=== PATIENT | male | born 1975 | race Caucasian/White ===

== ENCOUNTER 2017-08-24 23:24 | Emergency (ER) | payer OTHER ==
[2017-08-24 23:32] VITALS: BP 117/90; PULSE 85; BMI 29.0
--- NOTE | 2017-08-25 00:09 | PDOC ---
*Physical Exam - Vital Signs Last Vital Signs Temp Pulse Resp BP Pulse Ox 85 18 117/90 99 08/24/17 23:26 08/24/17 23:26 08/24/17 23:26 08/24/17 23:26 - Physical Exam Comments: 08/25/17 00:08 The patient was examined by [DIETARY ASSISTANT Indu] under my direct supervision. I personally evaluated the patient. I concur with the above findings and the plan of care.
--- NOTE | 2017-08-25 00:28 | PDOC ---
History of Present Illness - General Chief Complaint: Injury Stated Complaint: FALL,INJURY Time Seen by Provider: 08/24/17 23:45 History Source: Patient Exam Limitations: No Limitations - History of Present Illness Initial Comments: 08/25/17 02:19 42-year-old male with no medical history presents to the emergency department complaining of right frontal headache, right shoulder discomfort after a slip and fall. Patient states he had approximately 8 beers earlier this evening at a restaurant. As he was walking down 4 steps, he slipped and fell causing his right frontal forehead to hit the pavement. Fall was witnessed by the employees at the restaurant who denied loss of consciousness. Patient states when he fell forward he also struck the anterior right shoulder on the step. The sure the pain is described as 4/10 dull nonradiating intermittent discomfort. The pain is exacerbated on movement/touch and alleviated at rest. Patient denies lightheadedness, dizziness, visual disturbance, diplopia, facial pain, sore throat, neck pain, back pains, shortness of breath, abdominal pains, flank pains , urinary symptoms, extremity numbness or tingling sensation. Occurred: reports: just prior to arrival Pain Location: reports: head Past History - Past Medical History Allergies/Adverse Reactions: Allergies Allergy/AdvReac Type Severity Reaction Status Date / Time No Known Allergies Allergy Verified 08/24/17 23:28 Home Medications: Ambulatory Orders NK [No Known Home Medication] 08/25/17 COPD: No Hypercholesterolemia: Yes - Suicide/Smoking/Psychosocial Hx Smoking History: Never smoked Review of Systems - Review of Systems Able to Perform ROS?: Yes Comments:: 08/25/17 02:21 CONSTITUTIONAL: Absent: fever, chills, diaphoresis, generalized weakness, malaise, loss of appetite HEENT: Absent: rhinorrhea, nasal congestion, throat pain, throat swelling, difficulty swallowing, mouth swelling, ear pain, eye pain, visual Changes CARDIOVASCULAR: Absent: chest pain, loss of consciousness, palpitations, irregular heart rate, peripheral edema RESPIRATORY: Absent: cough, shortness of breath, dyspnea with exertion, orthopnea, wheezing, stridor, hemoptysis GASTROINTESTINAL: Absent: abdominal pain, abdominal distension, nausea, vomiting, diarrhea, constipation, melena, hematochezia GENITOURINARY: Absent: dysuria, frequency, urgency, hesitancy, hematuria, flank pain, genital pain MUSCULOSKELETAL: right shoulder pain Absent: myalgia, arthralgia, joint swelling SKIN: Absent: rash, itching, pallor HEMATOLOGIC/IMMUNOLOGIC: Absent: easy bleeding, easy bruising, lymphadenopathy, frequent infections ENDOCRINE: Absent: unexplained weight gain, unexplained weight loss, heat intolerance, cold intolerance NEUROLOGIC: +right frontal burger Absent: focal weakness or paresthesias, dizziness, unsteady gait, seizure, mental status changes, bladder or bowel incontinence Is the patient limited Indonesian proficient: No *Physical Exam - Vital Signs Last Vital Signs Temp Pulse Resp BP Pulse Ox 85 18 117/90 99 08/24/17 23:26 08/24/17 23:26 08/24/17 23:26 08/24/17 23:26 - Physical Exam Comments: 08/25/17 02:21 GENERAL: Well developed, well nourished. Awake and alert. No acute distress. HEENT: Normocephalic, atraumatic. PERRLA, EOMI. No conjunctival pallor. Sclera are non- icteric. Moist mucous membranes. Oropharynx is clear. NECK: Supple. Full ROM. No JVD. Carotid pulses 2+ and symmetric, without bruits. No thyromegaly. No lymphadenopathy. CARDIOVASCULAR: Regular rate and rhythm. No murmurs, rubs, or gallops. Distal pulses are 2+ and symmetric. PULMONARY: No evidence of respiratory distress. Lungs clear to auscultation bilaterally. No wheezing, rales or rhonchi. ABDOMINAL: Soft. Non-tender. Non-distended. No rebound or guarding. No organomegaly. Normoactive bowel sounds. MUSCULOSKELETAL Excluding right shoulder;Normal range of motion at all joints. No bony deformities or tenderness. No CVA tenderness. EXTREMITIES: No cyanosis. No clubbing. No edema. No calf tenderness. SKIN: Warm and dry. Normal capillary refill. No rashes. No jaundice. NEUROLOGICAL: +Right frontal scalp swelling Alert, awake, appropriate. Cranial nerves 2-12 intact. No deficits to light touch and temperature in face, upper extremities and lower extremities. No motor deficits in the in face, upper extremities and lower extremities. Normoreflexic in the upper and lower extremities. Normal speech. Toes are down- going bilaterally. Gait is normal without ataxia. PSYCHIATRIC: Cooperative. Good eye contact. Appropriate mood and affect. Right shoulder F.R.O.M./slight pain slight swelling neg obv deformities Right elbow F.R.O.M. Neg swelling neg pain on palp ED Treatment Course - LABORATORY CBC & Chemistry Diagram: 08/25/17 02:00 08/25/17 02:00 - RADIOLOGY Radiograph Interpretation: 08/25/17 02:15 CAT scan cervical spine without contrast: No acute fracture or malalignment. Minimal spondylosis. Straightening of cervical lordosis, possibly due to positioning or muscle spasm. CAT scan head without contrast: No acute brain parenchymal abnormality. No hemorrhage, mass or acute infarct. Swelling right frontal scalp. No skull fracture. Clear visualized parents nasal sinuses. Visualized mastoid ear cells clear. Progress Note - Progress Note Progress Note: CAT scan head without contrast: No acute brain parenchymal abnormality. No hemorrhage, mass or acute territorial infarct. Swelling right frontal scalp. No skull fracture. Clear visualized paranasal sinuses. Visualized mastoid ear cells clear. Allyn/daughter [phone] Pt does not have a ride home. He will sleep in the ER until his daughter gets here about 6 am *DC/Admit/Observation/Transfer Diagnosis at time of Disposition: Closed head injury Qualifiers: Encounter type: initial encounter Qualified Code(s): S09.90XA - Unspecified injury of head, initial encounter Contusion of scalp Qualifiers: Encounter type: initial encounter Qualified Code(s): S00.03XA - Contusion of scalp, initial encounter Contusion of shoulder, right Qualifiers: Encounter type: initial encounter Qualified Code(s): S40.011A - Contusion of right shoulder, initial encounter - Discharge Dispostion Condition at time of disposition: Stable Admit: No - Referrals Referrals: Bob Alvarez MD [Staff Physician] - - Patient Instructions Printed Discharge Instructions: DI for Closed Head Injury Additional Instructions: Rest Tylenol as needed for pain Bacitracin to the abrasion to your scalp Follow up with your physician or the neurosurgeon listed on your discharge Ice your swollen scalp for the next 48 hours/ 20 mins on alternating with 20 mins off. Return to the ER for severe pain, lightheadedness Ice; 20 mins on alternating with 20 mins off for 48 hours while awake./right shoulder Rest Elevate Follow up with your orthopedic surgeon or the one listed on the discharge form. Return to the ER for severe/persistent/worsening symptoms, extremity numbness/ tingling sensation. - Post Discharge Activity
[2017-08-25] MEDS ORDERED: FOLIC ACID INJECTION - 1 MG, THIAMINE HCL 100 MG, MULTIVIT INJECTION ADULT 10 ML in SOD... IVPB ONE (02:40)
[2017-08-25 02:49] LABS: BASOPHIL 0.2 % (0-2.0); EOSINOPHIL 1.1 % (0-4.5); MCHC 34.6 g/dl (32.0-35.9); MEAN CELL VOLUME 92.7 fl (80-96); MEAN PLT VOLUME 10.3 fl (7.5-11.1); NEUTROPHILS 61.2 % (42.8-82.8); PLATELET COUNT 232 K/MM3 (134-434); RDW 13.3 % (11.9-15.9); WHITE BLOOD COUNT 8.3 K/mm3 (4.0-10.0)
[2017-08-25] MEDS ORDERED: TETANUS AND DIPHTHERIA TOXOID 0.5 ML DISP.SYRIN IM ONE (02:53)
[2017-08-25 03:22] LABS: ALBUMIN 4.6 g/dl (3.4-5.0); ALK PHOS 80 U/L (45-117); ANION GAP 12 (8-16); BILIRUBIN,TOTAL 0.4 mg/dL (0.2-1.0); CALCIUM 8.6 mg/dL (8.5-10.1); CO2 26 mmol/L (21-32); CREATININE 0.8 mg/dL (0.7-1.3); GLUCOSE,RANDOM 103 mg/dL (74-106); SGOT/AST 24 U/L (15-37); SGPT/ALT 51 U/L (12-78); TOT PROT 8.5 g/dl (6.4-8.2)
[2017-08-25] MEDS ORDERED: ACETAMINOPHEN INJECTION 100 ML IVPB ONE (05:40)
[2017-08-25] MEDS ORDERED: BACITRACIN 0.9 GM PACKET ONE (06:18)
[2017-08-25] MEDS ORDERED: ACETAMINOPHEN 1000 MG/100 ML VIAL (NON FORMULARY) IVPB ONE (06:18)
== END 2017-08-25 06:21 | disposition home or self-care (01) ==
LOC: JER 23:24
PROC: 3E0234Z Introduction of Serum, Toxoid and Vaccine into Muscle, Percutaneous Approach (ICD-10-PCS; principal; 2017-08-24)
PROC: 3E033GC Introduction of Other Therapeutic Substance into Peripheral Vein, Percutaneous Approach (ICD-10-PCS; 2017-08-24)
PROC: 3E033NZ Introduction of Analgesics, Hypnotics, Sedatives into Peripheral Vein, Percutaneous Approach (ICD-10-PCS; 2017-08-24)
DX: S00.83XA Contusion of other part of head, initial encounter (principal); S40.011A Contusion of right shoulder, initial encounter; W10.8XXA Fall (on) (from) other stairs and steps, initial encounter; Y93.89 Activity, other specified; Y92.511 Restaurant or cafe as the place of occurrence of the external cause; Y99.8 Other external cause status; F10.10 Alcohol abuse, uncomplicated; Y90.8 Blood alcohol level of 240 mg/100 ml or more
CPT/HCPCS: 36415; 70450-TC; 72125-TC; 73030-TC-RT; 80053; 80307; 85025; 90471; 90715; 96365; 96366; 96375; 99283-25

== ENCOUNTER 2017-08-30 10:28 | Emergency (ER) | payer OTHER ==
[2017-08-30 10:37] VITALS: BP 131/88; PULSE 81; TEMP 98.1; BMI 29.1
--- NOTE | 2017-08-30 11:55 | PDOC ---
History of Present Illness - General Chief Complaint: Eye Problem Stated Complaint: FOLLOW UP/ EYE INJURY Time Seen by Provider: 08/30/17 11:33 History Source: Patient Exam Limitations: No Limitations - History of Present Illness Initial Comments: 08/30/17 11:51 pt presents to ER s/p head injury 08/25/17 is here for swelling around right eye with bruising. Pt c/o headache that is relieved with tylenol, however pt is concerned about the swelling. Pt denies nv, no change in vision or mental status. Severity: Yes: mild Past History - Past Medical History Allergies/Adverse Reactions: Allergies Allergy/AdvReac Type Severity Reaction Status Date / Time No Known Allergies Allergy Verified 08/30/17 10:33 Home Medications: Ambulatory Orders NK [No Known Home Medication] 08/25/17 COPD: No Hypercholesterolemia: Yes - Suicide/Smoking/Psychosocial Hx Smoking History: Never smoked Have you smoked in the past 12 months: No Information on smoking cessation initiated: No Hx Alcohol Use: No Drug/Substance Use Hx: No Substance Use Type: Alcohol Neuro Specific PMHX - Complaint Specific PMHX Glaucoma: No Herniated Disk: No Laminectomy: No Migraine: No Multiple Sclerosis: No Neuropathy: No TIA: No Review of Systems - Review of Systems Able to Perform ROS?: Yes Is the patient limited Venezuelan proficient: No Constitutional: No: Symptoms Reported HEENTM: Yes: Symptoms Reported Respiratory: No: Symptoms reported Cardiac (ROS): No: Symptoms Reported ABD/GI: No: Symptoms Reported : No: Symptoms Reported Musculoskeletal: Yes: See HPI *Physical Exam - Vital Signs Last Vital Signs Temp Pulse Resp BP Pulse Ox 98.1 F 81 16 131/88 98 08/30/17 10:34 08/30/17 10:34 08/30/17 10:34 08/30/17 10:34 08/30/17 10:34 - Physical Exam General Appearance: Yes: Nourished, Appropriately Dressed HEENT: positive: EOMI, CHANTELLE, TMs Normal, Pharynx Normal, Other (periorbital echymosis , no tender, no orbital tenderness ). negative: Tonsillar Exudate, Nasal Congestion Neck: positive: Supple. negative: Tender Respiratory/Chest: positive: Lungs Clear, Normal Breath Sounds Cardiovascular: positive: Regular Rhythm, Regular Rate Gastrointestinal/Abdominal: positive: Normal Bowel Sounds, Soft Musculoskeletal: positive: Normal Inspection Extremity: positive: Normal Capillary Refill, Normal Inspection, Normal Range of Motion Integumentary: positive: Normal Color, Dry, Warm Neurologic: positive: Fully Oriented, Alert, Normal Mood/Affect, Normal Response , Motor Strength 01/26 ED Treatment Course - RADIOLOGY Radiology Studies Ordered: Category Date Time Status HEAD CT WITHOUT CONTRAST [CT] Stat CT Scan 08/30/17 11:51 Ordered Medical Decision Making - Medical Decision Making 08/30/17 11:54 cc: s/p head trauma 08/25/17 here for follow up right eye has swelling around his right eye with periorbital echymosis, no corneal redness or LAKESHA, conjunctiva is pink , no vision changes neg nvd neg orbital tenderness will get head CT for follow up 08/30/17 16:26 ctis negative pt has been given the results, pt is aware to follow up with the neurologist as discussed pt will rest at home all questions asked and answered at discharge. pt is stable for discharge 08/30/17 16:27 *DC/Admit/Observation/Transfer Diagnosis at time of Disposition: Closed head injury Qualifiers: Encounter type: subsequent encounter Qualified Code(s): S09.90XD - Unspecified injury of head, subsequent encounter - Discharge Dispostion Disposition: HOME Condition at time of disposition: Good - Referrals Referrals: Domingo Liu [Primary Care Provider] - Micheal Perkins MD [Staff Physician] - - Patient Instructions Printed Discharge Instructions: DI for Closed Head Injury Additional Instructions: follow with the neurologist for any headaches nausea or dizzyness rest at home and take tylenol 650mg every 4-6hrs for headache and pain as needed avoid any alcohol as this can make symptoms worse apply warm compresses to the area of swelling every 3hrs for 20 minutes as needed - Post Discharge Activity Forms/Work/School Notes: Back to Work
== END 2017-08-30 12:54 | disposition home or self-care (01) ==
LOC: JERFT 10:28
DX: S09.90XD Unspecified injury of head, subsequent encounter (principal); X58.XXXD Exposure to other specified factors, subsequent encounter; Y93.9 Activity, unspecified; Y92.9 Unspecified place or not applicable
CPT/HCPCS: 70450-TC; 99281-25